=== PATIENT | female | born 1990 | race Caucasian/White ===

== ENCOUNTER 2018-03-06 23:19 | Emergency (ER) | payer OTHER, BC ==
[~2018-03-06] VITALS: Ht 162.6 cm; Wt 123.0 kg
[2018-03-06] MEDS ORDERED: ONDA4TAB9 SL ×2 (23:52→23:53)
[2018-03-06] MEDS ORDERED: HYDR-3965 PO ×2 (23:52→23:53)
[2018-03-06] MEDS ORDERED: VAL5T PO ×2 (23:52→23:53)
[2018-03-06] MEDS ORDERED: METH500T PO ×2 (23:52→23:53)
[2018-03-06] MEDS ORDERED: HYDROcodone/acetaminophen 5mg/325mg tablet PO ONE (23:55)
[2018-03-06] MEDS ORDERED: diazepam 5mg tablet PO ONE (23:55)
[2018-03-06] MEDS ORDERED: ondansetron 4mg rapidly disintigrating tab PO ONE (23:55)
[2018-03-07 00:29] VITALS: BP 138/104
== END 2018-03-07 00:32 | disposition home or self-care (01) ==
LOC: ER 23:20
DX: S76.811A Strain of other specified muscles, fascia and tendons at thigh level, right thigh, initial encounter (principal); G89.29 Other chronic pain; Z90.89 Acquired absence of other organs; Z88.5 Allergy status to narcotic agent; X58.XXXA Exposure to other specified factors, initial encounter; Y93.89 Activity, other specified; Y92.89 Other specified places as the place of occurrence of the external cause; Y99.9 Unspecified external cause status
CPT/HCPCS: 99284